=== PATIENT | male | born 1975 | race Caucasian/White ===

== ENCOUNTER 2018-01-21 12:39 | Emergency (ER) | payer SELFPAY | END 2018-01-21 16:23 | disposition left against medical advice (07) | LOC: ER 16:17 | DX: M54.5 Low back pain (principal); Z53.21 Procedure and treatment not carried out due to patient leaving prior to being seen by health care provider ==

== ENCOUNTER 2018-03-04 12:06 | Emergency (ER) | payer MEDICAID ==
[~2018-03-04] VITALS: Ht 177.8 cm; Wt 66.0 kg
[2018-03-04] MEDS ORDERED: SODIUM CHLORIDE 0.9% 1,000 ML IV ONE (13:38)
[2018-03-04 13:39] LABS: CHLORIDE 101 mEq/L (98-107)
[2018-03-04 13:40] LABS: INR 0.9; PROTHROMBIN TIME 9.4 sec (9.1-11.1)
[2018-03-04] MEDS ORDERED: MORPHINE SULFATE 4 MG/ML CPJ (NOT FOR IM USE) IV ONE (13:45)
[2018-03-04 13:55] LABS: BASOPHILS % 0.3 % (0.0-2.0); EOSINOPHILS % 0.5 % (0.0-5.0); HEMATOCRIT. 35.3 % (42.0-52.0); HEMOGLOBIN. 11.8 g/dL (14.0-18.0); LYMPHOCYTES % 35.3 % (20.0-50.0); MEAN CORPUSCULAR HEMOGLOBIN 28.8 pg (28.0-32.0); MEAN PLATELET VOLUME 7.1 fl (7.4-10.4); NEUTROPHILS % 54.9 % (40.0-76.0); PLATELET 415 x1000/uL (130-400); RED CELL DISTRIBUTION WIDTH 16.6 % (11.6-14.6)
[2018-03-04] MEDS ORDERED: MORPHINE SULFATE 10 MG/ML CPJ IV NR (14:15)
[2018-03-04 16:30] VITALS: BP 99/68
== END 2018-03-04 16:58 | disposition short-term general hospital (02) ==
LOC: ER 12:46 → CANBEDREQ 19:18
DX: R53.1 Weakness (principal); R11.2 Nausea with vomiting, unspecified; R19.7 Diarrhea, unspecified
CPT/HCPCS: 36415; 71045; 80053; 83605; 84145; 84484; 85025; 85610; 87040; 93005; 96361; 96374; 99285; J2270; J7030

== ENCOUNTER 2018-11-19 02:57 | Emergency (ER) | payer MEDICAID ==
[~2018-11-19] VITALS: Ht 175.3 cm; Wt 77.0 kg
[2018-11-19] MEDS ORDERED: ONDANSETRON HCL 4MG/2ML INJ IV STA (03:52)
[2018-11-19] MEDS ORDERED: SODIUM CHLORIDE 0.9% 1,000 ML IV ONE (03:52)
[2018-11-19 04:19] LABS: BASOPHILS % 0.7 % (0.0-2.0); EOSINOPHILS % 3.2 % (0.0-5.0); HEMOGLOBIN. 13.3 g/dL (14.0-18.0); LYMPHOCYTES % 46.2 % (20.0-50.0); MEAN CORPUSCULAR HEMOGLOBIN 30.6 pg (28.0-32.0); MEAN CORPUSCULAR VOLUME 92.2 fL (80.0-94.0); MEAN PLATELET VOLUME 6.3 fl (7.4-10.4); MONOCYTES % 7.8 % (2.0-8.0); NEUTROPHILS % 42.1 % (40.0-76.0); PLATELET 451 x1000/uL (130-400); RED BLOOD CELL COUNT 4.34 mill/uL (4.7-6.1); RED CELL DISTRIBUTION WIDTH 14.6 % (11.6-14.6)
[2018-11-19 04:23] LABS: CHLORIDE 101 mEq/L (98-107)
[2018-11-19 04:47] LABS: CLARITY URINE CLEAR (CLEAR); COLOR URINE YELLOW (YELLOW); KETONES URINE NEGATIVE (NEGATIVE); LEUKOCYTE ESTERASE URINE NEGATIVE (NEGATIVE); NITRITE URINE NEGATIVE (NEGATIVE); OCCULT BLOOD URINE NEGATIVE (NEGATIVE); PROTEIN URINE NEGATIVE (NEGATIVE); UROBILINOGEN URINE 0.2 E.U./dL (0.2-1.0)
[2018-11-19 06:11] VITALS: BP 124/73
== END 2018-11-19 06:15 | disposition home or self-care (01) ==
LOC: ER 02:57
DX: R11.2 Nausea with vomiting, unspecified (principal); R19.7 Diarrhea, unspecified; R10.84 Generalized abdominal pain; F41.9 Anxiety disorder, unspecified; J45.909 Unspecified asthma, uncomplicated; E11.9 Type 2 diabetes mellitus without complications; F17.200 Nicotine dependence, unspecified, uncomplicated
CPT/HCPCS: 36415; 80053; 81003; 82962; 83605; 83690; 85025; 96361; 96374; 99283; J2405; J7030; Z7610

== ENCOUNTER 2019-05-06 08:43 | Emergency (ER) | payer MEDICAID ==
[~2019-05-06] VITALS: Ht 175.3 cm; Wt 80.0 kg
[2019-05-06] MEDS ORDERED: LORATADINE 10MG TABLET PO SCH (10:30)
[2019-05-06 10:37] VITALS: BP 110/60
== END 2019-05-06 10:40 | disposition home or self-care (01) ==
LOC: ER 08:43
DX: H10.12 Acute atopic conjunctivitis, left eye (principal); F41.9 Anxiety disorder, unspecified; J45.909 Unspecified asthma, uncomplicated; E11.9 Type 2 diabetes mellitus without complications; Z87.01 Personal history of pneumonia (recurrent)
CPT/HCPCS: 99283